=== PATIENT | female | born 1975 | race Caucasian/White ===

== ENCOUNTER 2018-05-13 08:47 | Emergency (ER) | payer OTHER ==
[~2018-05-13] VITALS: Ht 162.6 cm; Wt 63.5 kg
--- NOTE | 2018-05-13 08:50 | NUR ---
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 SHE IS A/A/OX3 IN NO DISTRESS.
[2018-05-13] MEDS ORDERED: IBUPROFEN 800 MG TABLET ONE (09:15)
[2018-05-13] MEDS: IBUPROFEN 800 MG TABLET PO ONE (09:21)
--- NOTE | 2018-05-13 09:39 | NUR ---
[facility] AT BEDSIDE SPEAKING TO PATIENT...
--- NOTE | 2018-05-13 10:18 | NUR ---
DC, RX AND FOLLOW UP INSTRUCTIONS GIVEN AND EXPLAINED TO MOTHER WHO STATES SHE UNDERSTANDS ALL INSTRUCTIONS.
== END 2018-05-13 10:23 | disposition home or self-care (01) ==
LOC: ER 08:47
DX: S13.4XXA Sprain of ligaments of cervical spine, initial encounter (principal); V49.40XA Driver injured in collision with unspecified motor vehicles in traffic accident, initial encounter; Y93.89 Activity, other specified; Y92.410 Unspecified street and highway as the place of occurrence of the external cause; Y99.8 Other external cause status
CPT/HCPCS: A4663